=== PATIENT | female | born 1975 | race African-American/Black ===

== ENCOUNTER 2017-07-11 21:11 | Emergency (ER) | payer OTHER ==
[~2017-07-11] VITALS: Ht 162.6 cm; Wt 83.5 kg
[~2017-07-11 21:11] MED LIST: BACTRIM DS TAB1 EACH PO; NOHOMEMEDICATIONS; PYRIDIUM200 MG PO
[2017-07-11 21:20] VITALS: BP 137/93
[2017-07-11 21:21] LABS: URINE BILIRUBIN NEGATIVE (Negative); URINE BLOOD 3+ (Negative); URINE COLOR YELLOW; URINE GLUCOSE-RANDOM* NEGATIVE (Negative); URINE KETONES TRACE (Negative); URINE PROTEIN (DIPSTICK) 2+ (Negative); URINE SPECIFIC GRAVITY 1.025 (1.003-1.035); URINE UROBILINOGEN 0.2 E.U./dl (0.2-1.0)
[2017-07-11 21:23] LABS: URINE LEUKOCYTES-REFLEX 2+ (Negative)
[2017-07-11 21:30] LABS: CASTS None Seen /LPF (None Seen); CRYSTALS None Seen /LPF (None Seen); SQUAMOUS 0-3 Few /LPF (0-3); URINE RBC >20 Many /HPF (0-2)
[2017-07-11] MEDS ORDERED: CIPRO500 MG PO (21:43)
[2017-07-11] MEDS ORDERED: IBUPROFEN 600600 M1 PO (21:46)
== END 2017-07-11 22:12 | disposition home or self-care (01) ==
LOC: ER 21:11
PROVIDERS: Nurse Practitioner
DX: N39.0 Urinary tract infection, site not specified (principal)

== ENCOUNTER → 2020-04-10 | Outpatient (CLI) | payer OTHER ==
[~2020-04-10] MED LIST changes: +CIPRO500 MG PO; +IBUPROFEN 600600 M1 PO
[2020-04-10 09:05] LABS: ABSOLUTE NEUTROPHILS 6.3 thou/uL (1.4-8.2); BASOPHILS 0.4 % (0.0-2.0); EOSINOPHILS 1.5 % (0.0-3.0); HEMATOCRIT 32.8 % (37.0-47.0); HEMOGLOBIN 10.5 gm/dL (12.0-15.0); LYMPHOCYTES 20.5 % (24.0-44.0); MCH 25.6 pg (26.0-34.0); MCHC 31.9 g/dL (28.0-37.0); MCV 80.2 fL (80.0-100.0); MONOCYTES 6.4 % (1.0-8.0); PLATELET COUNT 295 thou/uL (150-400); POLYS 71.2 % (36.0-66.0); RBC 4.09 mil/uL (4.20-5.00); RDW 15.6 % (10.5-14.5); WBC 8.9 thou/uL (4.0-11.0)
[2020-04-10 09:11] LABS: % SATURATION 11 % (20-39); IRON 41 ug/dL (50-170); TIBC 361 ug/dL (250-450)
== END ==
LOC: LABMALL 04-07 15:59
PROVIDERS: ATTEND Family Medicine
DX: D50.9 Iron deficiency anemia, unspecified (principal)

== ENCOUNTER → 2020-08-28 | Outpatient (CLI) | payer OTHER | LOC: ULTRA 09:31 | PROVIDERS: ATTEND Obstetrics & Gynecology | DX: R92.8 Other abnormal and inconclusive findings on diagnostic imaging of breast (principal) ==

== ENCOUNTER → 2020-12-14 | Outpatient (CLI) | payer OTHER | LOC: LAB 09:03 | PROVIDERS: ATTEND Family Medicine | DX: R50.9 Fever, unspecified (principal); R05 Cough; R06.02 Shortness of breath; Z20.822 Contact with and (suspected) exposure to COVID-19 ==

== ENCOUNTER → 2021-08-21 | Outpatient (CLI) | payer OTHER | LOC: RAD 09:14 | PROVIDERS: ATTEND Family Medicine | DX: Z12.31 Encounter for screening mammogram for malignant neoplasm of breast (principal); N64.89 Other specified disorders of breast ==